=== PATIENT | male | born 1980 | race Caucasian/White ===

== ENCOUNTER 2019-07-15 05:05 | Inpatient (IN) | payer OTHER ==
[~2019-07-15] VITALS: Ht 172.7 cm; Wt 93.0 kg
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
--- NOTE | 2019-07-15 05:10 | NUR ---
Dr. Carmona at bedside for MSE.
--- NOTE | 2019-07-15 05:25 | NUR ---
Patient out of ER for CT.
[2019-07-15] MEDS ORDERED: IV NORMAL SALINE 1000 ML BAG IV ONE (05:30)
--- NOTE | 2019-07-15 05:45 | NUR ---
[phone] CALLED WILL SEND A UNIT.
[2019-07-15] MEDS ORDERED: SWABABLE VALVE TRANSFER SET EA MC ONE (05:53)
[2019-07-15] MEDS ORDERED: IOHEXOL 300MG/ML 100 ML INFUS..BTL ONE (05:53)
[2019-07-15] MEDS ORDERED: IV NORMAL SALINE 250 ML IV ONE (05:53)
--- NOTE | 2019-07-15 06:25 | NUR ---
Pt back to ER from CT, unable to do CT with contrast due to technical difficulties with the CT machine. [employer] at bedside to ID and interview patient. Pt placed on monitor.
--- NOTE | 2019-07-15 06:47 | NUR ---
Report given to Beto diane.
[2019-07-15 06:55] LABS: BASOPHILS % (AUTO) 0.4 % (0.0-2.0); EOSINOPHILS % (AUTO) 0.2 % (0.0-7.0); HEMATOCRIT 37.5 % (36.7-47.1); HEMOGLOBIN 12.7 g/dL (12.5-16.3); LYMPHOCYTES # (AUTO) 1.5 K/uL (20.0-40.0); LYMPHOCYTES % (AUTO) 13.6 % (20.5-51.5); MEAN CORPUSCULAR HEMOGLOBIN 29.7 uug (23.8-33.4); MEAN CORPUSCULAR HGB CONC 34 g/dL (32.5-36.3); MONOCYTES # (AUTO) 0.9 K/uL (2.0-10.0); MONOCYTES % (AUTO) 8.5 % (0.0-11.0); NEUTROPHILS # (AUTO) 8.3 K/uL (1.8-8.9); NEUTROPHILS % (AUTO) 77.3 % (38.5-71.5); PLATELET COUNT (AUTO) 278 K/uL (152-348); RED BLOOD CELL COUNT(AUTO) 4.27 MIL/uL (4.06-5.63); WHITE BLOOD COUNT (AUTO) 10.8 K/uL (3.6-10.2)
[2019-07-15 07:07] LABS: CREATININE 1.1 mg/dL (0.6-1.3); POTASSIUM 4.3 mmol/L (3.5-5.1)
[2019-07-15 07:17] LABS: ETHANOL < 3 MG/DL (0-0)
[2019-07-15 07:22] LABS: BILIRUBIN,DIRECT 0.1 mg/dL (0.0-0.2); BILIRUBIN,TOTAL 0.4 mg/dL (0.2-1.0); TOTAL PROTEIN, SERUM 7.2 g/dL (6.4-8.2)
[2019-07-15 07:23] LABS: ACETAMINOPHEN < 2.0 ug/mL (10-30)
--- NOTE | 2019-07-15 07:26 | NUR ---
PT IS IN ROOM #1A. DR EDGE EVALUATED THE PT.
[2019-07-15] MEDS ORDERED: IV NORMAL SALINE 500 ML BAG IV ONE ×2 (07:30→12:15)
--- NOTE | 2019-07-15 07:41 | NUR ---
PT IS UNCOOPERATIVE. [employer] OFFICERS AT THE BEDSIDE TRYING TO TALK TO THE PT. PT IS REFUSING SUTURING OF HIS HEADS SKIN LACERATION.
[2019-07-15] MEDS ORDERED: LIDOCAINE 1%-EPI 1:100,000 20 ML VIAL ONE (07:42)
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
--- NOTE | 2019-07-15 08:41 | NUR ---
PT AGREED TO HAVE LACERATIONS REPAIRS. DR EDGE SUTURED AND STAPPLED PT's SCALP LACERATIONS. PT TOLERATED TO PROCEDURE WITHOUT COMPLICATIONS.
[2019-07-15 10:54] LABS: CREATININE 0.9 mg/dL (0.6-1.3)
--- NOTE | 2019-07-15 11:22 | NUR ---
PT WENT TO RESTROOM TO URINATE. GAIT IS STABLE. DR EDGE EVALUATED THE PT.
[2019-07-15] MEDS ORDERED: NEOMY/BACITRA/POLYMYXIN B OINT UD PACKET TP ONE ×2 (12:15→12:17)
[2019-07-15] MEDS ORDERED: TDAP DIPH,PERTUSS,TET VAC/PF 0.5 ML DISP.SYRIN IM ONE ×2 (12:15→12:17)
[2019-07-15] MEDS ORDERED: LIDOCAINE 1%-EPI 1:100,000 20 ML VIAL TP ONE (12:15)
--- NOTE | 2019-07-15 12:49 | NUR ---
Full telephone SBAR report received by HOME SUPPORT WORKERMARU Pérez.
--- NOTE | 2019-07-15 12:50 | NUR ---
report given to karey m/spike. pt was transfered to room #316.
[2019-07-15] MEDS: IV NS 1000 ML 1,000 ML IV PRN ×2 (13:00→15:00)
[2019-07-15 13:15] VITALS: BP 129/84
[2019-07-15] MEDS ORDERED: ACETAMINOPHEN 325 MG TABLET PO PRN (13:15)
[2019-07-15] MEDS ORDERED: Z GUARD REMEDY PASTE 57 GM TUBE TOP PRN (13:15)
[2019-07-15] MEDS ORDERED: ONDANSETRON 4 MG/2 ML VIAL IV PRN (13:15)
[2019-07-15] MEDS ORDERED: HYDROCODONE/APAP 5-325MG TABLET PO PRN (13:15)
[2019-07-15] MEDS ORDERED: MAGNESIUM HYDROXIDE 30 ML LIQUID UDC PO PRN (13:15)
[2019-07-15] MEDS ORDERED: ZOLPIDEM 5 MG TABLET PO PRN (13:15)
--- NOTE | 2019-07-15 13:15 | NUR ---
Pt received from ER. Pt alert and refusing to respond to any commands. Nad noted upon admission.
[2019-07-15] MEDS ORDERED: LORAZEPAM 2 MG/1 ML VIAL IV ONE (13:45)
--- NOTE | 2019-07-15 13:45 | NUR ---
At 1335, vanessa cheng called. Spoke with SAÚL Sheffield on telephone regarding pt's increasing agitation. New orders received and carried out.
[2019-07-15] MEDS ORDERED: HALOPERIDOL LACTATE 5 MG/1 ML VIAL IM ONE (16:00)
[2019-07-15] MEDS ORDERED: diphenhydrAMINE 50 MG/1 ML VIAL IM ONE (16:00)
[2019-07-15] MEDS ORDERED: LORAZEPAM 2 MG/1 ML VIAL IM ONE (16:00)
--- NOTE | 2019-07-15 16:23 | NUR ---
At 1615, vanessa cheng called. Pt noted to be biting and ripping out restraints with his mouth. Spoke with SAÚL Sheffield new orders received and carried out.
[2019-07-15 16:29] VITALS: BP 135/92
--- NOTE | 2019-07-15 19:30 | NUR ---
[facility] CALL FOR THE PT
--- NOTE | 2019-07-15 19:40 | NUR ---
RECEIVED PT CONFUSED AND IN RESTRAINT AND 1:1 FOR SAFETY. PT IN NO ACUTE RESPIRATORY DISTRESS. PT PULLED OUT HIS IV. SAFETY AND COMFORT PROVIDED. WILL CONTINUE TO MONITOR.
--- NOTE | 2019-07-15 19:47 | NUR ---
SAÚL GARZON ORDERED ATIVAN 2MG IMQ2H PRN FOR PT. PT RESTLESS, YELLING, TRYING TO PULL OUT THE RESTRAINT. PT TRANSFER TO TELE AND IN AND OUT CATHETER ORDERED. SAFETY PROVIDED.
[2019-07-15 20:00] VITALS: BP 125/68
[2019-07-15] MEDS: LORAZEPAM 2 MG/1 ML VIAL IM PRN ×2 (20:03→22:03)
[2019-07-15 23:25] LABS: *BILIRUBIN,URIN NEGATIVE (NEGATIVE); *BLOOD, URINE 1+ (NEGATIVE); *CLARITY,URINE CLEAR (CLEAR); *COLOR,URINE YELLOW (YELLOW); *KETONES,URINE 2+ (NEGATIVE); *UROBILINOGEN,URINE 0.2 E.U./dl (NORMAL); LEUKOCYTE ESTERASE ,URINE NEGATIVE (NEGATIVE); NITRITE, URINE NEGATIVE (NEGATIVE); UGLUCOSE NEGATIVE (NEGATIVE)
[2019-07-15 23:37] LABS: *AMPHETAMINE, URINE POSITIVE (NEGATIVE); *BARBITURATE, URINE NEGATIVE (NEGATIVE); *CANNABINOID, URINE NEGATIVE (NEGATIVE); *COCCAINE, URINE NEGATIVE (NEGATIVE); *OPIATE, URINE POSITIVE (NEGATIVE); *PHENCYCLIDINE SCREEN,URINE NEGATIVE (NEGATIVE)
[2019-07-16] VITALS: BP 132/74
[2019-07-16] LABS: BACTERIA,URINE NONE SEEN /HPF (NONE SEEN); SQUAMOUS EPITHELIAL CELL,UR FEW /HPF (NONE SEEN); WBC,URINE 0-3 /HPF (0-3)
[2019-07-16 00:01] LABS: MUCUS,URINE FEW /LPF (0-FEW)
[2019-07-16] MEDS: LORAZEPAM 2 MG/1 ML VIAL IM PRN ×6 (00:09→23:37)
[2019-07-16 04:00] VITALS: BP 122/84
--- NOTE | 2019-07-16 07:16 | NUR ---
PT IN NO ACUTE RESPIRATORY DISTRESS. PRESCRIBED MEDICATION GIVEN AND PT TOLERATED IT WELL. AT 2003H, 2203H, 0009H,0321H, AND 0618H PT GIVEN ATIVAN FOR PT RESTLESS, ANXIOUS, TRYING TO GET OUT OF THE RESTRAINTS, YELLING, KICKING THE BED. SISTER OF THE PT CALLED LAST NIGHT BUT SHE'S NOT ON THE PERSON TO NOTIFY. I JUST GAVE BRIEF INFORMATION THAT PT IS FINE AND SLEEPING WELL. I TOLD HER WHEN THE PT IS AWAKE I WILL TELL HER BROTHER TO CONTACT HER. Q30H OFFERED DRINK AND FOOD TO THE PT. PT REFUSED. SAFETY AND COMFORT PROVIDED. WILL ENDORSE TO INCOMING NURSE FOR CONTINUITY OF CARE.
[2019-07-16 07:27] LABS: BILIRUBIN,TOTAL 0.9 mg/dL (0.2-1.0); CREATININE 1.2 mg/dL (0.6-1.3); POTASSIUM 3.9 mmol/L (3.5-5.1); TOTAL PROTEIN, SERUM 6.9 g/dL (6.4-8.2)
[2019-07-16 07:30] LABS: BASOPHILS % (AUTO) 0.1 % (0.0-2.0); HEMATOCRIT 32.1 % (36.7-47.1); HEMOGLOBIN 10.9 g/dL (12.5-16.3); LYMPHOCYTES # (AUTO) 1.2 K/uL (20.0-40.0); LYMPHOCYTES % (AUTO) 10.8 % (20.5-51.5); MEAN CORPUSCULAR HEMOGLOBIN 30.1 uug (23.8-33.4); MEAN CORPUSCULAR HGB CONC 34 g/dL (32.5-36.3); MEAN CORPUSCULAR VOLUME 88.6 fL (73.0-96.2); MONOCYTES # (AUTO) 0.7 K/uL (2.0-10.0); MONOCYTES % (AUTO) 5.9 % (0.0-11.0); NEUTROPHILS # (AUTO) 9.3 K/uL (1.8-8.9); NEUTROPHILS % (AUTO) 83.2 % (38.5-71.5); PLATELET COUNT (AUTO) 259 K/uL (152-348); RED BLOOD CELL COUNT(AUTO) 3.62 MIL/uL (4.06-5.63); WHITE BLOOD COUNT (AUTO) 11.2 K/uL (3.6-10.2)
--- NOTE | 2019-07-16 07:30 | NUR ---
RECEIVED PATIENT CONFUSED AND IN RESTRAINT WITH 1:1 FOR SAFETY. PATIENT'S IV INTACT AND PATENT WITH IV FLUID RUNNING AT 150 ML/HR WITH NS. PATIENT IS IN NO ACUTE RESPIRATORY DISTRESS. SAFETY AND COMFORT PROVIDED. WILL CONTINUE TO MONITOR.
[2019-07-16 07:34] LABS: THYROID STIMULATING HORMONE 0.579 mIU/mL (0.358-3.740)
[2019-07-16] MEDS: IV NS 1000 ML 1,000 ML IV PRN ×3 (07:54→22:11)
[2019-07-16 08:30] VITALS: BP 134/70
[2019-07-16] MEDS ORDERED: IV NS 1000 ML 1,000 ML IV ONE ×2 (10:15→10:45)
--- NOTE | 2019-07-16 10:15 | NUR ---
MD ORDERED 2 LITERS OF NS BOLUS . NOTED AND CARRIED OUT.
[2019-07-16 15:26] VITALS: BP 120/68
[2019-07-16] MEDS ORDERED: ACETAMINOPHEN 650 MG SUPP.RECT RC PRN (18:00)
--- NOTE | 2019-07-16 18:14 | NUR ---
PATIENT CONFUSED AND IN RESTRAINT WITH 1:1 FOR SAFETY. PATIENT HAD A TEMP AT 1700 OF 100.6 RECEIVED AN ORDER OF TYLENOL SUPP BECAUSE PATIENT SPITTED OUT THE TYLENOL PO. NOTED AND CARRIED OUT. THE ORDER AND ADMINISTER THE TYLENOL SUPP. PATIENT'S IV INTACT AND PATENT WITH IV FLUID RUNNING AT 150 ML/HR WITH NS. PATIENT IS IN NO ACUTE RESPIRATORY DISTRESS. SAFETY AND COMFORT PROVIDED. WILL CONTINUE TO MONITOR.
--- NOTE | 2019-07-16 19:03 | NUR ---
RECHECK TEMP OF PATIENT 99.7. AFTER SUPPOSITORY WAS GIVEN
--- NOTE | 2019-07-16 19:30 | NUR ---
RECEIVED PT AWAKE, ALERT AND ORIENTEDX 1. PT IN NO ACUTE RESPIRATORY DISTRESS. 1;1 SITTER AND RESTRAINT PROVIDED FOR SAFETY. SAFETY AND COMFORT PROVIDED. WILL CONTINUE TO MONITOR.
[2019-07-16 20:24] VITALS: BP 125/68
--- NOTE | 2019-07-16 23:43 | NUR ---
PT GIVEN ATIVAN FOR RESTLESSNESS, SCREAMING AND TRYING TO GET OUT OF THE BED. PT IN NO ACUTE RESPIRATORY DISTRESS. SAFETY PROVIDED. WILL CONTINUE TO MONITOR.
[2019-07-17 00:08] VITALS: BP 132/84
[2019-07-17 04:44] VITALS: BP 142/91
[2019-07-17] MEDS: IV NS 1000 ML 1,000 ML IV PRN ×4 (05:54→20:35)
[2019-07-17] MEDS: LORAZEPAM 2 MG/1 ML VIAL IM PRN ×2 (06:01→14:46)
--- NOTE | 2019-07-17 06:13 | NUR ---
PT SLEPT INTERMITTENTLY. PT IN NO ACUTE RESPIRATORY DISTRESS. IV INTACT. PRESCRIBED MEDICATION GIVEN AND PT TOLERATED IT WELL. PT GIVEN 0601H ATIVAN. PT RESTLESS, SCREAMING, GETTING OUT OF THE BED. PT TOLERATED IT WELL. SITTER AND SOFT RESTRAINT FOR SAFETY. SAFETY AND COMFORT PROVIDED, PT OFFERED FOOD AND DRINK. WILL ENDORSE TO INCOMING NURSE FOR OF CARE.
[2019-07-17 06:57] LABS: BASOPHILS # (AUTO) 0.1 K/uL (0.0-8.0); BASOPHILS % (AUTO) 0.4 % (0.0-2.0); HEMOGLOBIN 10.1 g/dL (12.5-16.3); LYMPHOCYTES # (AUTO) 1.7 K/uL (20.0-40.0); LYMPHOCYTES % (AUTO) 11.8 % (20.5-51.5); MEAN CORPUSCULAR HEMOGLOBIN 29.9 uug (23.8-33.4); MEAN CORPUSCULAR HGB CONC 34 g/dL (32.5-36.3); MEAN CORPUSCULAR VOLUME 88.8 fL (73.0-96.2); MONOCYTES # (AUTO) 1.2 K/uL (2.0-10.0); MONOCYTES % (AUTO) 7.9 % (0.0-11.0); NEUTROPHILS # (AUTO) 11.8 K/uL (1.8-8.9); NEUTROPHILS % (AUTO) 79.9 % (38.5-71.5); PLATELET COUNT (AUTO) 237 K/uL (152-348); RED BLOOD CELL COUNT(AUTO) 3.37 MIL/uL (4.06-5.63)
[2019-07-17 07:00] LABS: BILIRUBIN,TOTAL 0.8 mg/dL (0.2-1.0); MAGNESIUM 2.1 mg/dL (1.8-2.4); POTASSIUM 3.3 mmol/L (3.5-5.1)
[2019-07-17 07:25] LABS: WHITE BLOOD COUNT (AUTO) 14.8 K/uL (3.6-10.2)
[2019-07-17 08:21] VITALS: BP 134/70
--- NOTE | 2019-07-17 09:00 | NUR ---
RECEIVED PATIENT CONFUSED AND IN SOFT WRIST RESTRAINT WITH 1:1 SITTER FOR SAFETY. PATIENT'S IV INTACT AND PATENT WITH IV FLUID RUNNING AT 150 ML/HR WITH NS. PATIENT IS IN NO ACUTE RESPIRATORY DISTRESS. SAFETY AND COMFORT PROVIDED. WILL CONTINUE TO MONITOR.
[2019-07-17] MEDS ORDERED: POTASSIUM CHLORIDE 20 MEQ TAB.PRT.SR PO ONE (09:15)
[2019-07-17] MEDS ORDERED: LORAZEPAM 2 MG/1 ML VIAL IV ONE (12:00)
[2019-07-17 15:01] VITALS: BP 130/73
--- NOTE | 2019-07-17 18:15 | NUR ---
PATIENT STILL CONFUSED AND IN SOFT WRIST RESTRAINT WITH 1:1 SITTER FOR SAFETY. CONTINUE TO MONITOR. PATIENT'S IV INTACT AND PATENT WITH IV FLUID RUNNING AT 200 ML/HR WITH NS. PATIENT IS IN NO ACUTE RESPIRATORY DISTRESS. PATIENT ONLY EATS A LITTLE BIT, BUT WHEN OFFER WATER HE DRINKS. SAFETY AND COMFORT PROVIDED. WILL CONTINUE TO MONITOR.
--- NOTE | 2019-07-17 19:30 | NUR ---
Report received. Patient 07/15/19 DX: Giovani KAY. Patient with 1:1 sitter and on and off restlessness and agitation. Oriented to name only. Bilateral wrists restraints for safety. Addendum: 07/18/19 at 0500 by KVNG GARCIA RN Amended: Links added.
[2019-07-17 20:00] VITALS: BP 129/76
--- NOTE | 2019-07-17 20:30 | NUR ---
New IV inserted to RFA with angio cath#20. Previous IVF site was leaking; nash'vance Ativan IV given for agitation. Addendum: 07/18/19 at 0507 by KVNG GARCIA RN Amended: Links added.
[2019-07-17] MEDS: LORAZEPAM 2 MG/1 ML VIAL IV PRN (20:43)
[2019-07-18] VITALS: BP 125/83
--- NOTE | 2019-07-18 00:30 | NUR ---
Patient awake, yelling and tossing in bed. Medicated with Ativan. Safety measures maintained.
[2019-07-18] MEDS: LORAZEPAM 2 MG/1 ML VIAL IV PRN ×5 (00:31→21:47)
[2019-07-18] MEDS: IV NS 1000 ML 1,000 ML IV PRN ×3 (01:30→19:50)
--- NOTE | 2019-07-18 03:30 | NUR ---
Extremely restless, kicking rails and trying to get out of bed. Repositioned. NAD noted.
[2019-07-18 06:09] LABS: BASOPHILS % (AUTO) 0.3 % (0.0-2.0); EOSINOPHILS % (AUTO) 0.1 % (0.0-7.0); HEMATOCRIT 26.9 % (36.7-47.1); HEMOGLOBIN 9.4 g/dL (12.5-16.3); LYMPHOCYTES # (AUTO) 1.9 K/uL (20.0-40.0); MEAN CORPUSCULAR HEMOGLOBIN 30.5 uug (23.8-33.4); MEAN CORPUSCULAR HGB CONC 35 g/dL (32.5-36.3); MEAN CORPUSCULAR VOLUME 87.4 fL (73.0-96.2); MONOCYTES # (AUTO) 0.9 K/uL (2.0-10.0); NEUTROPHILS # (AUTO) 8.3 K/uL (1.8-8.9); NEUTROPHILS % (AUTO) 74.6 % (38.5-71.5); PLATELET COUNT (AUTO) 223 K/uL (152-348); RED BLOOD CELL COUNT(AUTO) 3.07 MIL/uL (4.06-5.63); WHITE BLOOD COUNT (AUTO) 11.1 K/uL (3.6-10.2)
[2019-07-18 06:11] VITALS: BP 144/90
[2019-07-18 06:12] LABS: CREATININE 0.7 mg/dL (0.6-1.3); MAGNESIUM 1.6 mg/dL (1.8-2.4); PHOSPHOROUS 2.4 mg/dL (2.5-4.9); POTASSIUM 3.1 mmol/L (3.5-5.1)
--- NOTE | 2019-07-18 07:17 | NUR ---
Sleeping; NAD noted. Still with 1:1 sitter and bilateral soft wrist restraints for safety.
[2019-07-18] MEDS: MAGNESIUM SULFATE/D5W 100 ML IV SCH ×2 (10:47→13:50)
[2019-07-18] MEDS: POTASSIUM CHLORIDE 50 ML IV SCH ×2 (10:47→13:50)
[2019-07-18 11:19] VITALS: BP 134/82
--- NOTE | 2019-07-18 11:50 | NUR ---
patient very agitated and screaming, Ativan 2mg PRN given as ordered. Thea Delgado MOLD CLEANER also came in and checked the pt and talked to sister Sara for updates. On 1:1 sitter.
[2019-07-18] MEDS ORDERED: OLANZAPINE 5 MG TABLET PO ONE (12:45)
--- NOTE | 2019-07-18 12:46 | NUR ---
Pt still very agitated and screaming, Zyprexa PO once given as ordered.
[2019-07-18] MEDS ORDERED: NEUTRA PHOS PACKET PO ONE (15:30)
[2019-07-18 16:39] VITALS: BP 114/72
--- NOTE | 2019-07-18 17:42 | NUR ---
Pt started to get agitated again, screaming and starting to spit at sitter. Ativan PRN given as ordered.
--- NOTE | 2019-07-18 19:45 | NUR ---
Received patient asleep. PRN Ativan given by day shift nurse. Patient shows no signs or symptoms of distress at this time. Patient is NSR on tele monitor. Bed set to lowest position. 1:1 sitter at bedside for safety. Will continue to monitor patient.
[2019-07-19 00:28] VITALS: BP 138/87
[2019-07-19] MEDS: IV NS 1000 ML 1,000 ML IV PRN ×3 (00:56→11:32)
[2019-07-19 04:37] VITALS: BP 140/70
[2019-07-19 06:00] LABS: BASOPHILS % (AUTO) 0.3 % (0.0-2.0); EOSINOPHILS % (AUTO) 0.4 % (0.0-7.0); HEMATOCRIT 29.1 % (36.7-47.1); HEMOGLOBIN 9.9 g/dL (12.5-16.3); LYMPHOCYTES # (AUTO) 1.8 K/uL (20.0-40.0); LYMPHOCYTES % (AUTO) 18.4 % (20.5-51.5); MEAN CORPUSCULAR HEMOGLOBIN 30.3 uug (23.8-33.4); MEAN CORPUSCULAR HGB CONC 34 g/dL (32.5-36.3); MEAN CORPUSCULAR VOLUME 88.9 fL (73.0-96.2); MONOCYTES # (AUTO) 0.8 K/uL (2.0-10.0); MONOCYTES % (AUTO) 8.4 % (0.0-11.0); NEUTROPHILS % (AUTO) 72.5 % (38.5-71.5); PLATELET COUNT (AUTO) 241 K/uL (152-348); RED BLOOD CELL COUNT(AUTO) 3.27 MIL/uL (4.06-5.63); WHITE BLOOD COUNT (AUTO) 9.7 K/uL (3.6-10.2)
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
[2019-07-19 06:21] LABS: CREATININE 0.8 mg/dL (0.6-1.3); MAGNESIUM 1.9 mg/dL (1.8-2.4); PHOSPHOROUS 3.3 mg/dL (2.5-4.9); POTASSIUM 3.1 mmol/L (3.5-5.1)
[2019-07-19] MEDS ORDERED: POTASSIUM CHLORIDE 20 MEQ TAB.PRT.SR PO ONE (08:15)
[2019-07-19 09:00] VITALS: BP 121/86
--- NOTE | 2019-07-19 10:00 | NUR ---
received pt. resting in bed, pt. is alert oriented x2-3. Pt. able to make needs known. Pt. ate breakfast this morning and able to take medication PO. pt. is calm and cooperative. safety measures in place. 1:1 sitter at bedside for safety. will continue to monitor pt.
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
--- NOTE | 2019-07-19 17:00 | NUR ---
Pt. discharged home picked up by sister. IV removed. ID band removed. pt. stable. pt. signed AMA paper. Dr. Thea Delgado aware. all belongings with pt.
== END 2019-07-19 17:00 | disposition left against medical advice (07) | DRG 115 ==
LOC: ER 05:10 → EDBD 12:33 → MEDSURG3 12:33 → TELE3 20:00
PROVIDERS: ADMIT Hospitalist; ATTEND Nurse Practitioner Acute Care
PROC: 0HQ0XZZ Repair Scalp Skin, External Approach (ICD-10-PCS; principal; 2019-07-15)
DX: S02.40EA Zygomatic fracture, right side, initial encounter for closed fracture (principal); R40.2122 Coma scale, eyes open, to pain, at arrival to emergency department; R40.2212 Coma scale, best verbal response, none, at arrival to emergency department; R40.2342 Coma scale, best motor response, flexion withdrawal, at arrival to emergency department; G92 Toxic encephalopathy; M62.82 Rhabdomyolysis; E83.42 Hypomagnesemia; S02.40CA Maxillary fracture, right side, initial encounter for closed fracture; S02.841A Fracture of lateral orbital wall, right side, initial encounter for closed fracture; E87.6 Hypokalemia; S01.01XA Laceration without foreign body of scalp, initial encounter; V29.9XXA Motorcycle rider (driver) (passenger) injured in unspecified traffic accident, initial encounter; Y93.9 Activity, unspecified; Y92.89 Other specified places as the place of occurrence of the external cause; D64.9 Anemia, unspecified; R82.6 Abnormal urine levels of substances chiefly nonmedicinal as to source; D72.829 Elevated white blood cell count, unspecified
CPT/HCPCS: 36415; 70030-TC; 70450; 70486; 71260; 72125; 80307; 80329; 83735; 84100; 84443; 85025; 85730; 86850; 86900; 86901; 90715; A4217; A4663; C1758; G0378; G0480; G0480-TC; J1200; J1630; J2060; J3475; J3480; J3490; J7030; J7050; Q9967